=== PATIENT | male | born 1940 | race Caucasian/White ===

== ENCOUNTER 2021-07-26 10:13 | Observation (INO) | payer BC ==
--- OUTSIDE RECORDS SUMMARY | 2021-07-26 10:16 | XMS REPORT | Continuity of Care Document ---
:1940 Author Organization [facility] t Address [address] [place] [address] Care Team Providers Name Role Phone Khurram Garcia Primary Care Physician Maryann Neville Attending Clinician Unavailable Tanisha Persaud Attending Clinician Unavailable Sara Hernandez Attending Clinician Unavailable Mike MONSALVE Attending Clinician Nazia Garcia MD Attending Clinician Pcp-Lab Attending Clinician Unavailable Doctor Unassigned, Name Attending Clinician Unavailable Sara Hernandez Admitting Clinician Unavailable Payers Payer Name Policy Type Policy Number Effective Date Expiration Date S ource Problems Condition Condition Condition Status Onset Resolution Last Treating Co mments Source Name Details Category Date Date Treatment Clinician Date Benign Benign Disease Active 2019-04 Univers prostatic prostatic 0-05 [place]y of hyperplasi [place] Medical unspecifie unspecifie Br anch d whether d whether lower lower urinary urinary tract tract symptoms symptoms present present 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 0-05 ity of 00:00: [place] 00 Medical Branch 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 [place] [facility] [place] 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 00:00: [place] loss loss 00 Medical (SNHL) of (SNHL) of Bran ch both ears both ears Paroxysmal Paroxysmal Disease Active 2020-1 U nivers atrial atrial 0-05 ity of fibrillati fibrill[place] Allergies, Adverse Reactions, Alerts Allergy Allergy Status Severity Reaction(s) Onset Inactive Treating Comm ents Source Name Type Date Date Clinician Sulfa DA Active U 2020-0 [facility] (Sulfona 4-28 [facility] 00:00: d Antibiot 00 Medical ics) Center codeine DA Active SV 2020-0 [facility] 4[facility]28 [facility]: d [facility] Sulfa DA Active U NAUSEA 2020-0 [facility] (Sulfona 4-28 [facility] 00:00: d Antibiot 00 Medical ics) Center codeine DA Active SV CLIMBS THE 2020-0 [facility] WALL 4-28 [facility] 00:[facility]: d 00 [facility] Center Sulfa DA Active U 2020-0 [facility] (Sulfona 4-24 [facility] mide 00:00: White Antibiot 00 Regiona ics) [facility] codeine DA Active SV 2020-0 [facility] 4-24 Clear 00:00: [place] 00 [facility] Sulfa DA Active U NAUSEA 2020-0 [facility] (Sulfona 4-24 Clear mide 00:00: [place] Antibiot 00 Regiona ics) [facility] codeine DA Active SV CLIMBS THE 2020-0 [facility] WALL 4-24 Clear 00:00: [place] 00 [facility] Sulfa DA Active U 2020-0 [facility] (Sulfona 3-03 [place] m[facility] 00:00: d Antibiot 00 Medical ics) Center codeine DA Active SV 2020-0 [facility] 3-03 [facility] 00:[facility]: d 00 [facility] Sulfa DA Active U NAUSEA 2020-0 [facility] (Sulfona 3-03 [place] m[facility] 00:00: d Antibiot 00 Medical ics) Center codeine DA Active SV CLIMBS THE 2020-0 [facility] WALL 3-03 [facility] 00:[facility]: d 00 [facility] Center Sulfa DA Active U 2019- [facility] (Sulfona 2-28 [place] m[facility] 00:00: d Antibiot 00 Medical ics) Center Sulfa DA Active U CLIMBS THE [facility] (Sulfona WALL 2- [facility] mide 00:00: d Antibiot 00 Medical ics) Center Sulfa Propensi Active Nausea Univers (Sulfona ty to and/or 2-05 ity of mide adverse Vomiting 00:00: [place] Antibiot reaction 00 Medica l ics) s Branch Codeine Propensi Active Anxiety Univer s ty to 01-09 ity of adverse 00:00: [place] reaction 00 Medical s Branch Social History Social Habit Start Date Stop Date Quantity Comments Source Exposure to Not sure [facility] SARS-CoV-2 (event) [facility] History of tobacco Smoker Univer sity of use [facility] Alcohol intake 2021-07-06 2021-07-06 Ex-drinker University 00:00:00 00:00:00 (finding) [facility] Tobacco use and 2013-05-20 2013-05-20 Never used Universit y of exposure 00:00:00 00:00:00 [facility] Cigarettes smoked 2013-05-20 2013-05-20 Univers ity of current (pack per 00:00:00 00:00:00 ) - Reported Branch Cigarette 2013-05-20 2013-05-20 University of pack-years 00:00:00 00:00:00 [facility] Sex Assigned At [birth year] Universit y of 00:00:00 00:00:00 [facility] Smoking Status Start Date Stop Date Source Former smoker 2013-05-20 00:00:00 2013-05-20 00:00:00 Universi ty of [facility] Medications Ordered Filled Start Stop Current Ordering Indication Dosage Frequency Signature Comments Components Source Medication Medication Date Date Medication? Clinician (SIG) Name Name clopidogreL Yes 75mg Take 1 Univ ers 75 mg 4-08 tablet by ity of tablet 00:00: mouth [place] 00 daily. Medical Branch atorvastati Yes 80mg Take 1 Univ ers n 80 mg 4-07 tablet by ity of tablet 00:00: mouth at [place] 00 bedtime. Medical Branch atorvastati Yes [id number] 80mg Take 1 Univers n 80 mg 3-31 tablet by ity of tablet 00:00: mouth at [place] 00 bedtime. Medical Branch traMADoL 50 Yes 50mg Take 50 mg Univers mg tablet 3-24 by mouth ity of 13:33: every 6 [place] 43 (six) Medical hours as Branch needed. metoprolol Yes 12.5mg Take 12.5 Univers succinate 3-24 mg by ity of XL 25 mg 24 13:33: mouth [place] hr tablet 37 daily. Medical Branch SAW Yes 667mg Take 667 Univers PALMETTO 3-24 mg by ity of ORAL 13:11: mouth. [place] 36 Medical Branch Coenzyme Yes 200mg Take 200 Univ ers Q10 (CO 3-24 mg by ity of Q-10) 10 mg 13:11: mouth. [facility] 36 Medical Branch apixaban 5 2020-04 Yes 5mg Take 5 mg Un lan mg tablet 1-04 by mouth 2 ity of 00:00: (two) [place] 00 times Medical daily. Branch clopidogreL 2021- No 75mg Take 75 mg Univers 75 mg 9-24 04-08 by mouth. ity of tablet 00:00: 00:00 [place] 00 :00 Medical Branch tamsulosin 2019-04 Yes .4mg Take 1 Unive rs (FLOMAX) 1-02 capsule by ity o f 0.4 mg 24 00:00: mouth [place] hr capsule 00 daily. Medical Branch finasteride 2019-04 Yes [id number] 5mg Take 1 Univers 5 mg tablet 0-05 tablet by ity of 00:00: mouth [place] 00 daily. Medical Branch gabapentin 2019-04 Yes [id number] 300mg Take 1 Univers 300 mg 0-05 capsule by ity of capsule 00:00: mouth 3 [place] 00 (three) Medical times Branch daily. Immunizations Ordered Filled Immunization Date Status Comments [facility] e Immunization Name Name Pneumococcal 2020-01-18 Completed University o f Polysaccharide, 00:00:00 [place] Med ical PPSV23 (PNEUMOVAX) Branch Influenza High Dose 2020-01-18 Completed Unive rsity of Quad 00:00:00 [facility] Influenza Virus 2019-01-07 Completed Universit y of Vaccine 00:00:00 [facility] TDAP 2019-01-07 Completed University 00:00:00 [facility] Procedures This patient has no known procedures. Encounters Start End Encounter Admission Attending Care Care Encounter Source Date/Time Date/Time Type Type Clinicians Facility Department ID 2021-06-30 Out[facility] 2021-06-16 Outpatient J[facility] STFERNANDOLC [facility] [id number] [facility] 15:57:02 [facility] 2021-06-13 Outpatient Jamin STOZZIE [facility] [id number] [facility] 13:23:02 [facility] 2021-03-21 Outpatient ÓSCAR ROCCO [id number] [facility] 09:04:15 -[id number] [facility] 2019-08-11 Inpatient LUCRECIA Persaud [facility] MDAY [id number] [facility] 09:30:00 Tanisha [id number] [facility] 2019-06-16 Inpatient ROSALEE HuntMN [facility] [id number] [facility] 10:30:00 Brock [facility] 2019-06-12 Inpatient ROSALEE HernandezMN [facility] [id number] [facility] 10:30:00 Brock [id number] [facility] 2021-07-21 2021-07-21 Patient Mike, [facility] [id number] [place] [address] 00:00:00 00:00:[address] [facility] [id number] [facility] [id number] Michelle SÁNCHEZIO [phone] [place] [id number] [facility] 2021-07-21 2021-07-21 ambulatory [facility] [id number] [facility] 2021-07-04 2021-07-04 ambulatory [facility] [id number] [facility] 2021-06-20 2021-06-20 amb[facility] [id number] [facility] 2021-06-15 2021-06-15 ambulatory [facility] [id number] [facility] 2021-06-13 2021-06-13 [facility] [id number] [facility] 2019-08-07 2019-08-07 Outpatient ROSALEE PersaudCL LABO [id number] [facility] 09:36:00 09:36:00 Tanisha [id number] [facility] 2019-08-07 2019-08-07 Outpatient Hung [facility] MDAY [id number] [facility] 09:30:00 09:30:00 Tanisha [id number] [facility] 2019-07-30 2019-07-30 Telephone Jose [facility] [id number] 00:00:00 00:00:00 Ankur PRIMARY [id number] Joonik CARE [id number] PAVILLION [id number] 2019-07-24 2019-07-24 Hedis Abstractor Pcp-Lab [facility] [id number] 10:38:18 10:46:40 Visit PRIMARY [id number] CARE [id number] PAVILLION [id number] 2019-07-23 2019-07-23 Refill Doctor [facility] [id number] 00:00:00 00:00:00 Unassigned, PRIMARY [id number] Dora CARE [id number] PAVILLION [id number] 2019-06-30 2019-06-30 Office Garcia, [facility] [id number] 14:06:11 14:26:11 Visit Ankur FAMILY [id number] Joonik MEDICINE [id number] CLINIC - [id number] [address] Results Test Description Test Time Test Comments Results Result [facility] e Comments HERNIA SAC 2019-08-17 09:49:00 RUN DATE: 08/17/19 [facility] - Lab PAGE 1 RUN TIME: 948 Specimen Inquiry RUN USER: INTERFACE JERRI ENT: TIMO SILVA LOC: [facility] U #: [id number] AGE/SX: 79/M ROOM: RE08/11/19REG DR: Tanisha Persaud MD : 41 BED: DIS: STATUS: [facility] TLOC: SPEC #: [id number] RECD: 08/11/19 STATUS: KRISTY COSME #: [id number] RANDA: 08/11/19- SUBM DR: Tanisha Persaud MD ENTERED: 08/11/19 SP TYPE: HERNIA SAC OTHR DR: Brock Hernandez MD ORDERED: LEVEL 2, REQUEST COMMENTS: RIGHT INGUINAL HERNIA SAC COPIES TO: aTnisha Persaud MD [address], [address] [place] [address] Brock Hernandez MD [address] [place] [place] [address] ICD CODES: 550.9 - 553.9 - PROCEDURES: GM LEVEL 2 (08/14/19-1016) REQUEST (08/11/19-1040) CLINICAL HISTORY Right inguinal hernia FINAL DIAGNOSIS RIGHT INGUINAL HERNIA SAC: HERNIA SAC. CPT CODE: 41015 MACROSCOPIC Specimen in formalin labeled "right inguinal hernia sac" consists of an elongatedmembranous piece of tissue forming a sac like structure measuring 2.8 cm long. Seriallysectioned, submitted in toto, one cassette. MICROSCOPIC The sac is composed of thick collagenous fibrous membrane lined by focally reactivemesothelium and showing mild chronic inflammation. No atypia is seen. CONTINUED ON NEXT PAGE RUN DATE: 08/17/19 [place] - Lab PAGE 2 RUN TIME: 948 Specimen Inquiry RUN USER: INTERFACE SPEC #: [id number] PATIENT: THEOTIMO Gustafson #[id number] (Continued) ------- Signed SIGNATURE ON FILE Lisandro Alonzo. 08/17/19 0949 END OF REPORT Novel Coronavirus 20182019-08-08 20:51:00 Test Item Value Reference Range Interpretation Comme nts Novel Coronavirus 2018 Negative Negative Posit kevin results are indicative of the Inhouse (test code = presenc e [id number]-7 RNA, clinical [id number]) correlation wit h patient historyand other diagnosti c information is necessary to de terminepatient infection status. Positiv e results do not rule outbacterial in fection or co-infection with other viru ses. Negative results do not preclude SA RS-CoV-2 infection andshould not b e used as the sole basis for patient man agementdecisions. Negative result s must be combined with otherclinical o bservations, patient history, and ep idemiologicalinformation. Detection of SA RS-CoV-2 RNA may be affected bysamp le collection methods, storage conditi ons, and/or stageof infection. Marisol l RNA mutations, vaccinations, a ntiviraltherapeutics, antibiotics, ch emotherapeutic orimmunosuppres aubrie drugs have not been evaluated for e ffectson detection. Results are for the identification of SARS-CoV-2 RNA usingthe [employer]000 System under th e FDA Emergency UseAuthorizatio n. The testing is performed by chris crook in the procedures for the [employer] M2000 moleculardiagno stic SARS-CoV-2 assay in vitro. Testing Criteria: Preprocedure ScreeningSpecimen comments: SURGERY 08/11/19 SCHEDULEDNovel Coronavirus [id number] 01:09:00 Test Item Value Reference Range Interpretation Comments Novel Coronavirus Negative Negative Positive r esults are 2019 Inhouse (test indicativ e of the presence code = [id number]) ofSARS-CoV -2 RNA, clinical correlation wit h patient historyand othe r diagnostic info rmation is necessary to determinepatien t infection status. Positiv e results do not rule out bacterial infection or co -infection with other viru ses. Negative result s do not preclude SARS-C oV-2 infection andsh ould not be used as the saul e basis for patient managementdecis ions. Negative result s must be combined with otherclinical observations, p atient history, and epidemiological information . Detection of SARS-CoV-2 RNA may be affe cted bysample collec tion methods, storag e conditions, and /or stageof infection. Marisol l RNA mutations, vacc inations, antiviraltherap eutics, antibiotics, chemotherapeuti c orimmunosuppres aubrie drugs have not been e valuated for effectson d etection. Results are for the identification of SARS-CoV-2 RNA usingthe [employer] M2000 Sy stem under the FDA Emergen cy UseAuthorizatio n. The testing is perf ormed by moses negron in the procedures for the [employer] M2000 molecular diagnostic SARS-CoV-2 assa y in vitro. Testing Criteria: Preprocedure ScreeningSpecimen comments: SURGERY 08/11/19 SCHEDULEDBASIC METABOLIC [id number] 09:47:00 Test Item Value Reference Range Interpretation Comments SODIUM (test code = NA) 137 mmol/l 134.0-147.0 N POTASSIUM (test code = K) 4.3 mmol/L 3.6-5.2 N CHLORIDE (test code = CL) 104 mmol/l 98.0-107.0 N CARBON DIOXIDE (test code = CO2) 29.8 mmol/l 21.0-33.0 N ANION GAP (test code = GAP) 7.5 0-20 N GLUCOSE (test code = GLU) 88 mg/dl 70.0-110.0 N BLOOD UREA NITROGEN (test code = 24 mg/dl 7.0-18.0 H BUN) CREATININE (test code = CREAT) 0.96 mg/dL 0.60-1.30 N GFR NON BLACK (test code = 80 mL/min 70-80 N GFRNONBLACK) GFR BLACK (test code = GFRBLACK) 97 mL/min 85-97 N CALCIUM (test code = CA) 9.0 mg/dl 8.0-10.5 N CBC W/AUTO [id number] 09:40:00 Test Item Value Reference Range Interpretation Comments WHITE BLOOD CELL (test code = 8.0 K/mm3 4.5-11.0 N WBC) RED BLOOD CELL (test code = 4.63 M/mm3 4.40-5.90 N RBC) HEMOGLOBIN (test code = HGB) 14.5 gm/dL 13.0-17.0 N HEMATOCRIT (test code = HCT) 44.1 % 36.0-48.0 N MEAN CELL VOLUME (test code = 95.2 UM3 80.0-94.0 H MCV) MEAN CELL HGB (test code = MCH) 31.3 UUG 25.5-32.5 N MEAN CELL HGB CONCETRATION 32.9 gm/dL 29.0-35.5 N (test code = MCHC) RED CELL DISTRIBUTION WIDTH 13.0 % 11.5-15.0 N (test code = RDW) RED CELL DISTRIBUTION WIDTH SD 45.3 fL 34.8-50.2 N (test code = RDW-SD) PLATELET COUNT (test code = 263 K/mm3 150-400 N PLT) MEAN PLATELET VOLUME (test code 9.8 fl 7.4-10.4 N = MPV) NEUTROPHIL % (test code = NT%) 58.9 % 49.0-76.0 N IMMATURE GRANULOCYTE % (test 0.3 % 0.0-0.4 N code = IG%) LYMPHOCYTE % (test code = LY%) 19.9 % 23.0-38.0 L MONOCYTE % (test code = MO%) 10.5 % 1.0-10.0 H EOSINOPHIL % (test code = EO%) 9.5 % 1.0-5.0 H BASOPHIL % (test code = BA%) 0.9 % 0.0-1.0 N NEUTROPHIL # (test code = NT#) 4.7 K/mm3 2.4-6.3 N IMMATURE GRANULOCYTE # (test 0.02 x10 3/uL 0.00-0.07 N code = IG#) LYMPHOCYTE # (test code = LY#) 1.6 K/mm3 1.2-4.0 N MONOCYTE # (test code = MO#) 0.8 K/mm3 0.0-0.6 H EOSINOPHIL # (test code = EO#) 0.8 K/MM3 0.0-0.7 H BASOPHIL # (test code = BA#) 0.1 K/mm3 0.0-0.2 N [id number] 11:31:00 RUN DATE: 06/18/19 [facility] - Lab PAGE 1 RUN TIME: 1131 Specimen Inquiry RUN USER: INTERFACE PATIENT: TIMO SILVA LOC: JEM U #: [id number] AGE/SX: 79/M ROOM: [facility] RE06/16/19REG DR: Brock Hernandez MD : 41 BED: 1 DIS: STATUS: ADM Elisa TLOC: SPEC #: [id number] RECD: 06/16/19 STATUS: KRISTY COSME #: [id number] RANDA: 06/16/19- SUBM DR: Brock Hernandez MD ENTERED: 06/16/19 SP TYPE: BONE OTHR DR: ORDERED: REQUEST ICD CODES: 715.9 - PROCEDURES: REQUEST (06/16/19) TISSUES: KNEE, NOS - RIGHT KNEE BONE FINAL DIAGNOSIS RIGHT KNEE BONE, SHAVINGS: BONE AND ARTICULAR CARTILAGE WITH SURFACE EROSION AND MICROCYST FORMATION. CONSISTENT WITH DEGENERATIVE JOINT DISEASE. CPT CODE: 13795, 33540 MACROSCOPIC Received in formalin labeled "right knee bone" consists of a 8 x 7 x 5.1 cm aggregate ofknee bone slices ranging from minute to 8.0 cm in greatest dimension. The cartilaginoussurface is slightly irregular. The cortex is keith. Sap Bpc Architect section is submittedinto a single cassette following decalcification. MICROSCOPIC SEE DIAGNOSIS Signed SIGNATURE ON FILE Marlys Alonzo 06/18/19 1131 ----- ------- END OF REPORT COMPREHENSIVE METABOLIC [id number] 05:50:00 Test Item Value Reference Range Interpretation Comments SODIUM (test code = NA) 142 mmol/l 134.0-147.0 N POTASSIUM (test code = K) 4.2 mmol/L 3.6-5.2 N CHLORIDE (test code = CL) 107 mmol/l 98.0-107.0 N CARBON DIOXIDE (test code = CO2) 27.2 mmol/l 21.0-33.0 N ANION GAP (test code = GAP) 12.0 0-20 N GLUCOSE (test code = GLU) 101 mg/dl 70.0-110.0 N BLOOD UREA NITROGEN (test code = 18 mg/dl 7.0-18.0 N BUN) CREATININE (test code = CREAT) 0.99 mg/dL 0.60-1.30 N GFR NON BLACK (test code = 77 mL/min 70-80 N GFRNONBLACK) GFR BLACK (test code = GFRBLACK) 94 mL/min 85-97 N TOTAL PROTEIN (test code = PROT) 6.0 gm/dL 6.4-8.2 L ALBUMIN (test code = ALB) 2.9 gm/dl 3.2-4.7 L CALCIUM (test code = CA) 8.5 mg/dl 8.0-10.5 N BILIRUBIN TOTAL (test code = 0.3 mg/dl 0.0-1.0 N BILT) SGOT/AST (test code = AST) 25 Units/L 15.0-37.0 N SGPT/ALT (test code = ALT) 17 Units/L 12.0-78.0 N ALKALINE PHOSPHATASE TOTAL (test 71 Units/L 50.0-136.0 N code = ALKP) CBC W/AUTO [id number] 05:19:00 Test Item Value Reference Range Interpretation Comments WHITE BLOOD CELL (test code = 10.0 K/mm3 4.5-11.0 N WBC) RED BLOOD CELL (test code = 3.59 M/mm3 4.40-5.90 L RBC) HEMOGLOBIN (test code = HGB) 11.2 gm/dL 13.0-17.0 L HEMATOCRIT (test code = HCT) 33.9 % 36.0-48.0 L MEAN CELL VOLUME (test code = 94.4 UM3 80.0-94.0 H MCV) MEAN CELL HGB (test code = MCH) 31.2 UUG 25.5-32.5 N MEAN CELL HGB CONCETRATION 33.0 gm/dL 29.0-35.5 N (test code = MCHC) RED CELL DISTRIBUTION WIDTH 12.7 % 11.5-15.0 N (test code = RDW) RED CELL DISTRIBUTION WIDTH SD 44.3 fL 34.8-50.2 N (test code = RDW-SD) PLATELET COUNT (test code = 203 K/mm3 150-400 N PLT) MEAN PLATELET VOLUME (test code 10.4 fl 7.4-10.4 N = MPV) NEUTROPHIL % (test code = NT%) 58.7 % 49.0-76.0 N IMMATURE GRANULOCYTE % (test 0.3 % 0.0-0.4 N code = IG%) LYMPHOCYTE % (test code = LY%) 18.1 % 23.0-38.0 L MONOCYTE % (test code = MO%) 13.2 % 1.0-10.0 H EOSINOPHIL % (test code = EO%) 9.1 % 1.0-5.0 H BASOPHIL % (test code = BA%) 0.6 % 0.0-1.0 N NEUTROPHIL # (test code = NT#) 5.9 K/mm3 2.4-6.3 N IMMATURE GRANULOCYTE # (test 0.03 x10 3/uL 0.00-0.07 N code = IG#) LYMPHOCYTE # (test code = LY#) 1.8 K/mm3 1.2-4.0 N MONOCYTE # (test code = MO#) 1.3 K/mm3 0.0-0.6 H EOSINOPHIL # (test code = EO#) 0.9 K/MM3 0.0-0.7 H BASOPHIL # (test code = BA#) 0.1 K/mm3 0.0-0.2 N BASIC METABOLIC [id number] 07:01:00 Test Item Value Reference Range Interpretation Comments SODIUM (test code = NA) 144 mmol/l 134.0-147.0 N POTASSIUM (test code = K) 4.2 mmol/L 3.6-5.2 N CHLORIDE (test code = CL) 107 mmol/l 98.0-107.0 N CARBON DIOXIDE (test code = CO2) 30.2 mmol/l 21.0-33.0 N ANION GAP (test code = GAP) 11.0 0-20 N GLUCOSE (test code = GLU) 87 mg/dl 70.0-110.0 N BLOOD UREA NITROGEN (test code = 17 mg/dl 7.0-18.0 N BUN) CREATININE (test code = CREAT) 0.97 mg/dL 0.60-1.30 N GFR NON BLACK (test code = 79 mL/min 70-80 N GFRNONBLACK) GFR BLACK (test code = GFRBLACK) 96 mL/min 85-97 N CALCIUM (test code = CA) 8.6 mg/dl 8.0-10.5 N CBC W/AUTO [id number] 06:24:00 Test Item Value Reference Range Interpretation Comments WHITE BLOOD CELL (test code = 10.2 K/mm3 4.5-11.0 N WBC) RED BLOOD CELL (test code = 3.60 M/mm3 4.40-5.90 L RBC) HEMOGLOBIN (test code = HGB) 11.4 gm/dL 13.0-17.0 L HEMATOCRIT (test code = HCT) 34.8 % 36.0-48.0 L MEAN CELL VOLUME (test code = 96.7 UM3 80.0-94.0 H MCV) MEAN CELL HGB (test code = MCH) 31.7 UUG 25.5-32.5 N MEAN CELL HGB CONCETRATION 32.8 gm/dL 29.0-35.5 N (test code = MCHC) RED CELL DISTRIBUTION WIDTH 12.9 % 11.5-15.0 N (test code = RDW) RED CELL DISTRIBUTION WIDTH SD 46.0 fL 34.8-50.2 N (test code = RDW-SD) PLATELET COUNT (test code = 205 K/mm3 150-400 N PLT) MEAN PLATELET VOLUME (test code 10.7 fl 7.4-10.4 H = MPV) NEUTROPHIL % (test code = NT%) 67.3 % 49.0-76.0 N IMMATURE GRANULOCYTE % (test 0.5 % 0.0-0.4 H code = IG%) LYMPHOCYTE % (test code = LY%) 16.0 % 23.0-38.0 L MONOCYTE % (test code = MO%) 11.6 % 1.0-10.0 H EOSINOPHIL % (test code = EO%) 4.1 % 1.0-5.0 N BASOPHIL % (test code = BA%) 0.5 % 0.0-1.0 N NEUTROPHIL # (test code = NT#) 6.9 K/mm3 2.4-6.3 H IMMATURE GRANULOCYTE # (test 0.05 x10 3/uL 0.00-0.07 N code = IG#) LYMPHOCYTE # (test code = LY#) 1.6 K/mm3 1.2-4.0 N MONOCYTE # (test code = MO#) 1.2 K/mm3 0.0-0.6 H EOSINOPHIL # (test code = EO#) 0.4 K/MM3 0.0-0.7 N BASOPHIL # (test code = BA#) 0.1 K/mm3 0.0-0.2 N - XR KNEE 1 OR 2 V [id number] 09:11:00 FAX: Brock Mclean MD [phone] [place]: St: ADM Name: TIMO SILVA [facility] : 1940 Age/S: 79/M [address] [facility] Unit#: [id number] Loc: [address] Phys: [place] [address] Acct: [id number] Dis Date: Status: ADM IN PHONE #: [phone] Exam Date: 06/16/2019 0900 FAX #: [phone] Reason: tka EXAMS: CPT CODE: [id number] XR KNEE 1 OR 2 [place] [id number] EXAMINATION: - XR KNEE 1 OR 2 V RT. LOCATION: B2. HISTORY: tka. COMPARISON: None. TECHNIQUE: AP and lateral views of the right knee were obtained. FINDINGS: Right knee arthroplasty is seen without evidence of hardware failure or loosening. No acute fracture or dislocation is identified. Small joint effusion is seen containing air. Surgical rajiv are seen at midline along with a surgical drain. IMPRESSION: Postsurgical changes of right knee arthroplasty without evidence of hardware failure or loosening. at 0911 Reported and signed by: Kaylah Benitez M.D. CC: Brock Hernandez MD Technologist: ASHANTI MILTON [facility] Date/Time/By: 06/16/2019 (0911) : By: [email or web address] PAGE 1 Signed Report FAX: Y Brock Hernandez MD [phone] [place]: St: ADM Name: TIMO SILVA [facility] : 1940 Age/S: 79/M [address] [facility] Unit #: [id number] Loc: [address] Phys: [place] [id number] Acct: [id number] Dis Date: Status: ADM IN PHONE #: [phone] Exam Date: 06/16/2019 09 FAX #: [phone] Reason: tka EXAMS: CPT CODE: [id number] XR KNEE 1 OR 2 V RT [id number] <Continued> Orig Print D/T: S: 06/16/2019 (14) PAGE 2 Signed ReportPROTHROMBIN [id number] 06:00:00 Test Item Value Reference Range Interpretation Comments PROTHROMBIN TIME 12.1 SECONDS 9.9-12.8 PATIENT (test code = PTP) INTERN[place] NORMAL 1.0 0.89-1.14 N THE INR IS TO BE USED RATIO (test code = ONLY FOR MONITORING INR) ORAL ANTICOAGULANTTH ERAPY. THE FOLLOWING A RE SUGGESTED RANGE S FROM [facility]:JERRY CATION INR VALUEPROPHYLAXI S OF VENOUS THROMBOS IS (ORTHOPEDIC MARK PHYLLIS) 2.0 - 3.0PROP HYLAXIS OF VENOUS THROM BOSIS (OTHER THAN HIG H-RISK SURGERY) 2.0 - 3.0TRE ATMENT OF DEEP VEIN THROMBOSIS OR PULMONARY EMBOL ISM 2.0 - 3.0PREV ENTION OF SYSTEMIC EMB OLISM TISSUE HEART VA LVES 2.0 - 3.0 AC BETO MYOCARDIAL INFA RCTION (TO PREVENT SYSTEMIC EMBOLI SM) 2.0 - 3.0 ACUTE MYOCARDIA L INFARCTION (TO PREVENT RECURRE NT INFARCT) 2.5 - 3.0 VALV ULAR HEART DISEASE 2.0 - 3.0 ATRIAL FIBRILATION 2.0 - 3.0BILEAFLET MECHANICAL VALV E IN AORTIC POSITION 2.0 - 3.0MECHAN ICAL PROSTHETIC VALV ES (HIGH RISK) 2.5 - 3.5PRESEN CE OF LUPUS ANTICOAGU LANT OR ANTIPHOSPHOLIP ID ANTIBODIES 2.5 - 3 .5 Is patient on anticoagulants? YIf yes, list anticoagulants: ASPIRINComments to Non Destructive Testing Technician: ROOM 107If yes, please list anticoagulants:Is patient on heparin protocol? NTHROMBOPLASTIN TIME [id number] 06:00:00 Test Item Value Reference Range Interpretation Comments THROMBOPLASTIN TIME 38.10 SECONDS 25.86-36.07 [facility] PARTIAL (test code = Therape uti Range - PTT) APTT of 55.8-85 .4 secondscorrelat es with plasma heparin concentration o f 0.2-0.4 u/mL Ne w range effective - Is patient on anticoagulants? YIf yes, list anticoagulants: ASPIRINComments to Non Destructive Testing Technician: ROOM 107If yes, please list anticoagulants:Is patient on heparin protocol? NPROTHROMBIN [id number] 14:20:00 Test Item Value Reference Range Interpretation Comments PROTHROMBIN TIME 21.1 SECONDS 9.9-12.8 H PATIENT (test code = PTP) INTERNATIONAL NORMAL 1.7 0.89-1.14 H THE INR IS TO BE USED RATIO (test code = ONLY FOR MONITORING INR) ORAL ANTICOAGULANTTH ERAPY. THE FOLLOWING A RE SUGGESTED RANGE S FROM THEAMERICAN COL LEGE OF CHEST PHYSICIANS:JERRY CATION INR VALUEPROPHYLAXI S OF VENOUS THROMBOS IS (ORTHOPEDIC MARK PHYLLIS) 2.0 - 3.0PROP HYLAXIS OF VENOUS THROM BOSIS (OTHER THAN HIG H-RISK SURGERY) 2.0 - 3.0TRE ATMENT OF DEEP VEIN THROMBOSIS OR PULMONARY EMBOL ISM 2.0 - 3.0PREV ENTION OF SYSTEMIC EMB OLISM TISSUE HEART VA LVES 2.0 - 3.0 AC BETO MYOCARDIAL INFA RCTION (TO PREVENT SYSTEMIC EMBOLI SM) 2.0 - 3.0 ACUTE MYOCARDIA L INFARCTION (TO PREVENT RECURRE NT INFARCT) 2.5 - 3.0 VALV ULAR HEART DISEASE 2.0 - 3.0 ATRIAL FIBRILATION 2.0 - 3.0BILEAFLET MECHANICAL VALV E IN AORTIC POSITION 2.0 - 3.0MECHAN ICAL PROSTHETIC VALV ES (HIGH RISK) 2.5 - 3.5PRESEN CE OF LUPUS ANTICOAGU LANT OR ANTIPHOSPHOLIP ID ANTIBODIES 2.5 - 3 .5 Is patient on anticoagulants? YIf yes, list anticoagulants: XARELTO COMPREHENSIVE METABOLIC [id number] 13:42:00 Test Item Value Reference Range Interpretation Comments SODIUM (test code = NA) 138 mmol/l 134.0-147.0 N POTASSIUM (test code = K) 4.6 mmol/L 3.6-5.2 N CHLORIDE (test code = CL) 105 mmol/l 98.0-107.0 N CARBON DIOXIDE (test code = CO2) 25.4 mmol/l 21.0-33.0 N ANION GAP (test code = GAP) 12.2 0-20 N GLUCOSE (test code = GLU) 94 mg/dl 70.0-110.0 N BLOOD UREA NITROGEN (test code = 26 mg/dl 7.0-18.0 H BUN) CREATININE (test code = CREAT) 0.89 mg/dL 0.60-1.30 N GFR NON BLACK (test code = 88 mL/min 70-80 H GFRNONBLACK) GFR BLACK (test code = GFRBLACK) 106 mL/min 85-97 H TOTAL PROTEIN (test code = PROT) 7.0 GM/DL 6.0-8.1 N ALBUMIN (test code = ALB) 3.6 gm/dL 3.2-4.7 N CALCIUM (test code = CA) 9.2 mg/dl 8.0-10.5 N BILIRUBIN TOTAL (test code = 0.6 mg/dl 0.0-1.0 N BILT) SGOT/AST (test code = AST) 20 Units/L 15.0-37.0 N SGPT/ALT (test code = ALT) 22 Units/L 12.0-78.0 N ALKALINE PHOSPHATASE TOTAL (test 79 Units/L 50.0-136.0 N code = ALKP) CBC W/AUTO [id number] 13:28:00 Test Item Value Reference Range Interpretation Comments WHITE BLOOD CELL (test code = 7.3 K/mm3 4.5-11.0 N WBC) RED BLOOD CELL (test code = 4.25 M/mm3 4.40-5.90 L RBC) HEMOGLOBIN (test code = HGB) 13.2 gm/dL 13.0-17.0 N HEMATOCRIT (test code = HCT) 41.5 % 36.0-48.0 N MEAN CELL VOLUME (test code = 97.6 UM3 80.0-94.0 H MCV) MEAN CELL HGB (test code = MCH) 31.1 UUG 25.5-32.5 N MEAN CELL HGB CONCETRATION 31.8 gm/dL 29.0-35.5 N (test code = MCHC) RED CELL DISTRIBUTION WIDTH 12.8 % 11.5-15.0 N (test code = RDW) RED CELL DISTRIBUTION WIDTH SD 45.9 fL 34.8-50.2 N (test code = RDW-SD) PLATELET COUNT (test code = 225 K/mm3 150-400 N PLT) MEAN PLATELET VOLUME (test code 10.2 fl 7.4-10.4 N = MPV) NEUTROPHIL % (test code = NT%) 53.9 % 49.0-76.0 N IMMATURE GRANULOCYTE % (test 0.3 % 0.0-0.4 N code = IG%) LYMPHOCYTE % (test code = LY%) 25.5 % 23.0-38.0 N MONOCYTE % (test code = MO%) 10.9 % 1.0-10.0 H EOSINOPHIL % (test code = EO%) 8.8 % 1.0-5.0 H BASOPHIL % (test code = BA%) 0.6 % 0.0-1.0 N NEUTROPHIL # (test code = NT#) 3.9 K/mm3 2.4-6.3 N IMMATURE GRANULOCYTE # (test 0.02 x10 3/uL 0.00-0.07 N code = IG#) LYMPHOCYTE # (test code = LY#) 1.9 K/mm3 1.2-4.0 N MONOCYTE # (test code = MO#) 0.8 K/mm3 0.0-0.6 H EOSINOPHIL # (test code = EO#) 0.6 K/MM3 0.0-0.7 N BASOPHIL # (test code = BA#) 0.0 K/mm3 0.0-0.2 N - XR CHEST 2 [id number] 13:17:00 FAX: Brock Mclean MD [phone] [place]: St: PRE Name: TIMO SILVA [facility] : 1940 Age/S: 79/M [address] [facility] Unit#: [id number] Loc: [address] Phys: [place] [id number] Acct: [id number] Dis Date: Status: PRE IN PHONE #: [phone] Exam Date: 06/12/2019 1215 FAX #: [phone] Reason: PREOP EXAMS: CPT CODE: [id number] XR CHEST 2 V 95332 EXAM: - XR CHEST 2 V LOCATION: [id number]: PREOP COMPARISON: None available time of interpretation. FINDINGS: 2 views of the chest. No indwelling lines or tubes. No pneumothorax. The lungs are clear without significant effusions. The mediastinal contours are unremarkable/unchanged. The mediastinal contours are unremarkable. No acute osseous findings are present. IMPRESSION: No acute cardiopulmonary abnormality. at 1317 Reported and signed by: Milad Young M.D. CC: Brock Hernandez MD Technologist: RUBY BURKS PAGE 1 Signed Report FAX: Brock Mclean MD [phone] [place]: St: PRE Name: TIMO SILVA [facility] : 1940 Age/S: 79/M [address] Unit #: [id number] Loc: [address] Phys: [place] [id number] Acct: [id number] Dis Date: Status: PRE IN PHONE #: [phone] Exam Date: 06/12/2019 1215 FAX #: [phone] Reason: PREOP EXAMS: CPT CODE: [id number] XR CHEST 2 V 70813 <Continued> Trnscrd Date/Time/By: 06/12/2019 (1317) : By: [email or web address] PAGE 2 Signed ReportURINALYSIS [id number] 13:13:00 Test Item Value Reference Range Interpretation Comments UA COLOR (test code = LT YELLOW COLU) UA APPEARANCE (test code CLEAR = APPU) UA GLUCOSE DIPSTICK (test NORMAL mg/dl NORMAL code = DGLUU) UA BILIRUBIN DIPSTICK NEGATIVE mg/dL NEGATIVE (test code = BILU) UA KETONE DIPSTICK (test NEGATIVE mg/dl NEGATIVE code = KETU) UA SPECIFIC GRAVITY (test 1.015 1.000-1.030 code = SGU) UA BLOOD DIPSTICK (test 10 Rich/micL Rich/micL NEGATIVE A code = TEJA) UA PH DIPSTICK (test code 6.0 5.0-9.0 = XIN) UA PROTEIN DIPSTICK (test NEGATIVE mg/dl NEGATIVE code = PROU) UA UROBILINIOGEN DIPSTICK NORMAL mg/dl NORMAL (test code = URO) UA NITRITE DIPSTICK (test NEGATIVE NEGATIVE code = BARBARA) UA LEUKOCYTE ESTERASE 100 Francisco/micL NEGATIVE A DIPSTICK (test code = Francisco/micL LEUU) UA WBC (test code = WBCU) 4-9 WBC/HPF NONE A UA RBC (test code = RBCU) 3-5 RBC/HPF 0-3 UA EPITHELIAL CELLS (test 10-15 EPI/HPF 0-3 A code = EPIU) UA BACTERIA (test code = TRACE NONE BACU) URINALYSIS [id number] 12:47:00 Test Item Value Reference Range Interpretation Comments UA COLOR (test code = LT YELLOW COLU) UA APPEARANCE (test code CLEAR = APPU) UA GLUCOSE DIPSTICK (test NORMAL mg/dl NORMAL code = DGLUU) UA BILIRUBIN DIPSTICK NEGATIVE mg/dL NEGATIVE (test code = BILU) UA KETONE DIPSTICK (test NEGATIVE mg/dl NEGATIVE code = KETU) UA SPECIFIC GRAVITY (test 1.015 1.000-1.030 code = SGU) UA BLOOD DIPSTICK (test 10 Rich/micL Rich/micL NEGATIVE A code = TEJA) UA PH DIPSTICK (test code 6.0 5.0-9.0 = XIN) UA PROTEIN DIPSTICK (test NEGATIVE mg/dl NEGATIVE code = PROU) UA UROBILINIOGEN DIPSTICK NORMAL mg/dl NORMAL (test code = URO) UA NITRITE DIPSTICK (test NEGATIVE NEGATIVE code = BARBARA) UA LEUKOCYTE ESTERASE 100 Francisco/micL NEGATIVE A DIPSTICK (test code = Francisco/micL LEUU) UA WBC (test code = WBCU) WBC/HPF NONE UA RBC (test code = RBCU) RBC/HPF 0-3 UA EPITHELIAL CELLS (test EPI/HPF 0-3 code = EPIU) UA BACTERIA (test code = NONE BACU)
[2021-07-26 10:56] LABS: Absolute Lymphocytes (CBC) 1.7 K/uL (0.7-4.9); Hematocrit 29.6 % (39.6-49.0); Lymphocytes % 24.2 % (15.3-44.8); MPV 7.8 fL (7.6-11.3); RBC Red Blood Cell Count 3.33 M/uL (4.33-5.43)
--- NOTE | 2021-07-26 11:21 | ER ---
Nurse's Notes [facility] Name: Timo Silva Age: 81 yrs Sex: Male : 1940 Arrival Date: 07/26/2021 Time: 10:16 Bed Treatment Private MD: Diagnosis: Orthostatic hypotension;Unspecified atrial fibrillation Presentation: 07/26 10:29 Chief complaint: Patient states: Dizzy, near syncope feeling for 3 days. BP up and down ll1 while feeling bad. 10:30 Coronavirus screen: Vaccine status: Patient reports being unvaccinated. Client denies ll1 travel out of the [place] in the last 14 days. At this time, the client does not indicate any symptoms associated with coronavirus-19. Ebola Screen: Patient denies travel to an Ebola-affected area in the 21 days before illness onset. No acute neurological deficit is noted. Initial Sepsis Screen: Does the patient meet any 2 criteria? No. Patient's initial sepsis screen is negative. Does the patient have a suspected source of infection? No. Patient's initial sepsis screen is negative. Risk Assessment: Do you want to hurt yourself or someone else? Patient reports no desire to harm self or others. Onset of symptoms was July 24, 2021. 10:30 Method Of Arrival: Wheelchair ll1 10:30 Acuity: NADIRA 3 ll1 Triage Assessment: 10:32 The onset of the patients symptoms was more than six hours ago. General: Appears ill, ll1 Behavior is cooperative, appropriate for age. Pain: Denies pain. Neuro: Reports dizziness, weakness. Stroke Activation: Symptom onset > 6 hours Physician: Stroke Attending; Name: ; Notified At: ; Arrived At: Physician: Chief Stroke Resident; Name: ; Notified At: ; Arrived At: Physician: Stroke Resident; Name: ; Notified At: ; Arrived At: Physician: ED Attending; Name: ; Notified At: ; Arrived At: Physician: ED Resident; Name: ; Notified At: ; Arrived At: Historical: - Allergies: 10:29 Codeine; ll1 10:29 Sulfa (Sulfonamide Antibiotics); ll1 - PMHx: 10:29 Coronary atherosclerosis; Myocardial infarction; ll1 - Immunization history:: Client reports having NOT received the Covid vaccine. - Social history:: Smoking status: Patient denies any tobacco usage or history of. Screenin:50 Abuse screen: Denies threats or abuse. Denies injuries from another. Nutritional ab2 screening: No deficits noted. Tuberculosis screening: No symptoms or risk factors identified. Fall Risk None identified. Assessment: 10:48 VAN Scoring: Arm Drift: Patients demonstrates NO arm weakness. Patient is VAN Negative. ab2 The patient has not been NPO before screening. The patient is alert, and able to follow commands. The patient does not exhibit slurred or garbled speech. The patient is not exhibiting difficulty speaking. The patient does not exhibit difficulty understanding words. The patient is able to swallow own secretions with no drooling or need for suction. Patient tolerated one teaspoon of water. No drooling, immediate coughing, gurgling, or clearing of the throat was noted. The patient tolerated 90mL of water. No drooling, immediate coughing, gurgling, or clearing of the throat was noted. The patient passed the bedside swallow screening. Oral medications may be given as ordered. Contact Physician for further diet orders. Provider notified of bedside swallow screening results: Alejo Parra DO. General: Appears in no apparent distress. comfortable, Behavior is calm, cooperative, appropriate for age. Pain: Denies pain. Neuro: No deficits noted. Level of Consciousness is awake, alert, obeys commands, Oriented to person, place, time, situation, Appropriate for age Compensation Intern are equal bilaterally Moves all extremities. Gait is steady, Speech is normal, Facial symmetry appears normal. Cardiovascular: No deficits noted. Denies chest pain, shortness of breath, Heart tones S1 S2 present. Respiratory: Airway is patent Respiratory effort is even, unlabored, Respiratory pattern is regular, symmetrical, Breath sounds are clear bilaterally. GI: No deficits noted. No signs and/or symptoms were reported involving the gastrointestinal system. Abdomen is round non-distended, Bowel sounds present X 4 quads. : No deficits noted. No signs and/or symptoms were reported regarding the genitourinary system. Derm: No deficits noted. No signs and/or symptoms reported regarding the dermatologic system. Skin is intact, Skin is pink, warm \T\ dry. Musculoskeletal: No deficits noted. No signs and/or symptoms reported regarding the musculoskeletal system. 15:42 Reassessment: Patient appears in no apparent distress at this time. Pt resting in bed, ab2 patient ate lunch tray. Denies any further needs at this time. 17:04 Reassessment: Patient appears in no apparent distress at this time. Pt resting ab2 comfortably in bed. Warm blankets provided. Denies any further needs at this time. 20:22 Reassessment: Patient appears in no apparent distress at this time. Pt ambulated to ab2 bathroom with no assistance. Pt given ice water, per request. Pt denies any further needs. Vital Signs: 10:30 BP 112 / 58; Pulse 54; Resp 17; Temp 97.7; Pulse Ox 100% ; Pain 0/10; ll1 11:20 BP 104 / 52 Supine; Pulse 80; Resp 17; Pulse Ox 98% on R/A; ab2 11:22 BP 111 / 56; Pulse 68; Resp 17; Pulse Ox 99% on R/A; ab2 11:24 BP 92 / 48; Pulse 95; Resp 17; Pulse Ox 100% on R/A; ab2 12:54 BP 110 / 54 Supine; Pulse 80; Resp 16; Pulse Ox 100% on R/A; mh5 12:56 BP 102 / 65 Sitting; Pulse 38; Resp 16; Pulse Ox 100% on R/A; mh5 12:59 BP 88 / 53 Standing; Pulse 88; Resp 16; Pulse Ox 100% on R/A; mh5 14:00 BP 104 / 77; Pulse 90; Resp 17; Pulse Ox 100% on R/A; ab2 15:40 BP 108 / 81; Pulse 95; Resp 18; Pulse Ox 99% on R/A; ab2 16:33 BP 101 / 48; Pulse 111; Resp 17; Pulse Ox 97% on R/A; ab2 17:04 BP 98 / 67; Pulse 120; Resp 17; Pulse Ox 100% on R/A; ab2 18:08 BP 104 / 79; Pulse 108; Resp 17; Pulse Ox 99% on R/A; ab2 20:21 BP 101 / 53; Pulse 91; Resp 17; Pulse Ox 100% on R/A; ab2 NIH Stroke Scale Scores: 10:48 NIHSS Score: 0 ab2 ED Course: 10:16 Patient arrived in ED. rg4 10:30 Arm band placed on. ll1 10:32 Triage completed. ll1 10:36 Alejo Parra DO is Attending Physician. ms3 10:48 Bleininger, Rogelio is Primary Nurse. ab2 10:51 Patient has correct armband on for positive identification. Bed in low position. Call ab2 light in reach. Side rails up X2. 10:51 No provider procedures requiring assistance completed. Inserted saline lock: 20 gauge ab2 in left antecubital area, using aseptic technique. Blood collected. 11:20 Liam De La Rosa MD is Referral Physician. ms3 13:17 Atif Casper MD is Hospitalizing Provider. ms3 14:38 SARS-COV-2 RT PCR Sent. zm 21:10 Patient admitted, IV remains in place. ab2 Administered Medications: 11:30 Drug: NS 0.9% 1000 ml Route: IV; Rate: 1 bolus; Site: left antecubital; ab2 15:42 Follow up: Response: No adverse reaction; IV Status: Completed infusion ab2 Outcome: 11:21 Discharge ordered by . ms3 13:18 Decision to Hospitalize by Provider. ms3 21:10 Admitted to Med/surg accompanied by nurse, via wheelchair, room 222, with chart, Report ab2 called to SUKHJINDER Aguila 21:10 Condition: good 21:11 Patient left the ED. ab2 NIH Stroke Scale - NIH Stroke Score Date: 07/26/2021 Time: 10:48 Total Score = 0 1a. Level of Consciousness (LOC) - 0(Alert) 1b. Level of Consciousness (LOC) (Month \T\ Age) - 0(Both) 1c. LOC Commands (Open \T\ Closes Eyes/[employer]er) - 0(Both) 2. Best Gaze (Lateral Gaze Paresis) - 0(Normal) 3. Visual Field Loss - 0(No visual loss) 4. Facial Palsy - 0(Normal) 5a. Left Arm: Motor (10-second hold) - 0(No drift) 5b. Right Arm: Motor (10-second hold) - 0(No drift) 6a. Left Leg: Motor (5-second hold - always test supine) - 0(No drift) 6b. Right Leg: Motor (5-second hold - always test supine) - 0(No drift) 7. Limb Ataxia (finger/nose \T\ heel/tariq - test with eyes open) - 0(Absent) 8. Sensory Loss (pinprick arms/legs/face) - 0(Normal) 9. Best Language: Aphasia (description/naming/reading) - 0(No aphasia) 10. Dysarthria (speech clarity - read or repeat words) - 0(Normal) 11. Extinction and Inattention (visual/tactile/auditory/spatial/personal) - 0(No abnormality) Initials: ab2 Signatures: Ela Greenwood rg4 Hedy Moore 5 Genaro Herrera RN RN ll1 Alejo Parra, DO CARMICHAEL ms3 Rogelio Reyes ab2 Sahara Moore Corrections: (The following items were deleted from the chart) 11:27 11:26 BP 104 / 52 Supine; Pulse 80bpm; Resp 17bpm; Pulse Ox 98% RA; ab2 ab2
--- NOTE | 2021-07-26 11:21 | EDPHYS ---
Physician Documentation [facility] Name: Timo Silva Age: 81 yrs Sex: Male : 1940 Arrival Date: 07/26/2021 Time: 10:16 Bed Treatment Private MD: ED Physician Alejo Parra HPI: 07/26 10:45 This 81 yrs old Male presents to ER via Wheelchair with complaints of Blood Pressure ms3 Problem, Weakness, Dizziness. 10:45 The patient presents to the emergency department with weakness of the entire body, ms3 generalized weakness, that is moderate. Onset: The symptoms/episode began/occurred acutely, 3 day(s) ago. Context: occurred while the patient was standing. Associated signs and symptoms: The patient has no apparent associated signs or symptoms. Severity of symptoms: At their worst the symptoms were severe in the emergency department the symptoms have resolved Pain is currently a 0 / 10. 81-year-old male with past medical history of coronary artery disease, myocardial infarction presents for generalized weakness that occurs when standing. Patient states this has been ongoing for 3 days. Patient denies pain at this time. Patient states his symptoms are worse when going to stand. Patient denies chest pain, shortness of breath. Patient denies alleviating factors. Patient has noted his blood pressure to be variable recently.. Historical: - Allergies: 10:29 Codeine; ll1 10:29 Sulfa (Sulfonamide Antibiotics); ll1 - PMHx: 10:29 Coronary atherosclerosis; Myocardial infarction; ll1 - Immunization history:: Client reports having NOT received the Covid vaccine. - Social history:: Smoking status: Patient denies any tobacco usage or history of. ROS: 10:45 Constitutional: Negative for fever, and chills. ENT: Negative for injury, pain, and ms3 discharge, Cardiovascular: Negative for chest pain, and palpitations. Respiratory: Negative for shortness of breath, cough, wheezing, and pleuritic chest pain, Abdomen/GI: Negative for abdominal pain, nausea, vomiting, diarrhea, and constipation, MS/Extremity: Negative for injury and deformity, Skin: Negative for injury, rash, and discoloration, Psych: Negative for depression, anxiety, suicide ideation, homicidal ideation, and hallucinations, Hematologic/Lymphatic: Negative for swollen nodes, abnormal bleeding, and unusual bruising. 10:45 Neuro: Positive for Generalized weakness. Exam: 10:45 Constitutional: This is a well developed, well nourished patient who is awake, alert, ms3 and in no acute distress. Head/Face: Normocephalic, atraumatic. Eyes: Pupils equal round and reactive to light, extra-ocular motions intact. Lids and lashes normal. Conjunctiva and sclera are non-icteric and not injected. Periorbital areas with no swelling, redness, or edema. Neck: Trachea midline, no cervical lymphadenopathy. Supple, full range of motion without nuchal rigidity, or vertebral point tenderness. No Meningismus. Chest/axilla: Normal chest wall appearance and motion. Nontender with no deformity. Respiratory: Lungs have equal breath sounds bilaterally, clear to auscultation and percussion. No rales, rhonchi or wheezes noted. No increased work of breathing, no retractions or nasal flaring. Abdomen/GI: Soft, non-tender, with normal bowel sounds. No distension or tympany. No guarding or rebound. No evidence of tenderness throughout. Skin: Warm, dry with normal turgor. Normal color with no rashes, no lesions, and no evidence of cellulitis. MS/ Extremity: Pulses equal, no cyanosis. Neurovascular intact. Full, normal range of motion. Neuro: Awake and alert, GCS 15, oriented to person, place, time, and situation. Cranial nerves II-XII grossly intact. Motor strength 5/5 in all extremities. Sensory grossly intact. Cerebellar exam normal. Normal gait. Psych: Awake, alert, with orientation to person, place and time. Behavior, mood, and affect are within normal limits. 11:01 Cardiovascular: Rate: normal, Rhythm: irregularly irregular, Pulses: no pulse deficits ms3 are appreciated, Heart sounds: normal. 11:02 ECG was reviewed by the Attending Physician. ms3 Vital Signs: 10:30 BP 112 / 58; Pulse 54; Resp 17; Temp 97.7; Pulse Ox 100% ; Pain 0/10; ll1 11:20 BP 104 / 52 Supine; Pulse 80; Resp 17; Pulse Ox 98% on R/A; ab2 11:22 BP 111 / 56; Pulse 68; Resp 17; Pulse Ox 99% on R/A; ab2 11:24 BP 92 / 48; Pulse 95; Resp 17; Pulse Ox 100% on R/A; ab2 12:54 BP 110 / 54 Supine; Pulse 80; Resp 16; Pulse Ox 100% on R/A; mh5 12:56 BP 102 / 65 Sitting; Pulse 38; Resp 16; Pulse Ox 100% on R/A; mh5 12:59 BP 88 / 53 Standing; Pulse 88; Resp 16; Pulse Ox 100% on R/A; mh5 14:00 BP 104 / 77; Pulse 90; Resp 17; Pulse Ox 100% on R/A; ab2 15:40 BP 108 / 81; Pulse 95; Resp 18; Pulse Ox 99% on R/A; ab2 16:33 BP 101 / 48; Pulse 111; Resp 17; Pulse Ox 97% on R/A; ab2 17:04 BP 98 / 67; Pulse 120; Resp 17; Pulse Ox 100% on R/A; ab2 18:08 BP 104 / 79; Pulse 108; Resp 17; Pulse Ox 99% on R/A; ab2 20:21 BP 101 / 53; Pulse 91; Resp 17; Pulse Ox 100% on R/A; ab2 NIH Stroke Scale Scores: 10:48 NIHSS Score: 0 ab2 MDM: 10:43 Patient medically screened. ms3 21:16 Data reviewed: vital signs, nurses notes. Counseling: I had a detailed discussion with ms3 the patient and/or guardian regarding: the historical points, exam findings, and any diagnostic results supporting the discharge/admit diagnosis, lab results, the need for further work-up and treatment in the hospital. 07/26 10:38 Order name: Basic Metabolic Panel; Complete Time: 11:10 sc3 07/26 10:38 Order name: CBC with Diff; Complete Time: 11:10 ms3 07/26 14:08 Order name: SARS-COV-2 RT PCR EDMS 07/26 15:49 Order name: T4 Free EDMS 07/26 15:49 Order name: Thyroid Stimulating Hormone EDMS 07/26 15:49 Order name: Urinalysis EDMS 07/26 15:49 Order name: Basic Metabolic Panel EDMS 07/26 15:49 Order name: Basic Metabolic Panel EDMS 07/26 15:49 Order name: CBC with Automated Diff EDMS 07/26 15:49 Order name: CBC with Automated Diff EDMS 07/26 15:49 Order name: CKMB Creatine Kinase MB EDMS 07/26 15:49 Order name: CKMB Creatine Kinase MB EDMS 07/26 15:49 Order name: CKMB Creatine Kinase MB EDMS 07/26 10:38 Order name: EKG; Complete Time: 10:38 ms3 07/26 10:38 Order name: Cardiac monitoring; Complete Time: 10:48 ms3 07/26 10:38 Order name: EKG - Nurse/Tech; Complete Time: 10:48 ms3 07/26 13:24 Order name: Diet Heart Healthy; Complete Time: 13:24 mh5 07/26 15:49 Order name: CKMB Creatine Kinase MB EDMS 07/26 15:49 Order name: Creatine Phosphokinase EDMS 07/26 15:49 Order name: Creatine Phosphokinase EDMS 07/26 15:49 Order name: Creatine Phosphokinase EDMS 07/26 15:49 Order name: Creatine Phosphokinase EDMS 07/26 15:49 Order name: Lipid Profile EDMS 07/26 15:49 Order name: Lipid Profile EDMS 07/26 15:49 Order name: Magnesium EDMS 07/26 15:49 Order name: Magnesium EDMS 07/26 15:49 Order name: Phosphorus EDMS 07/26 15:49 Order name: Phosphorus EDMS 07/26 10:38 Order name: IV Saline Lock; Complete Time: 10:48 ms3 07/26 10:38 Order name: Labs collected and sent; Complete Time: 10:48 ms3 07/26 10:38 Order name: O2 Per Protocol; Complete Time: 10:48 ms3 07/26 10:38 Order name: O2 Sat Monitoring; Complete Time: 10:48 ms3 07/26 11:09 Order name: Orthostatics; Complete Time: 11:28 ms3 EC:02 Rate is 98 beats/min. Rhythm is irregularly irregular. QRS [place] is Normal. Clinical ms3 impression: Atrial Fibrillation. Interpreted by me. Reviewed by me. Administered Medications: 11:30 Drug: NS 0.9% 1000 ml Route: IV; Rate: 1 bolus; Site: left antecubital; ab2 15:42 Follow up: Response: No adverse reaction; IV Status: Completed infusion ab2 Disposition Summary: 07/26/21 13:18 Hospitalization Ordered Hospitalization Status: Observation ms3 Provider: Atif Casper ms3 Location: Telemetry/MedSurg (observation)(07/26/21 13:18) ms3 Condition: Stable(07/26/21 13:18) ms3 Problem: new(07/26/21 13:18) ms3 Symptoms: are unchanged(07/26/21 13:18) ms3 Bed/Room Type: Standard ms3 Room Assignment: 222(07/26/21 20:46) ja Diagnosis - Orthostatic hypotension ms3 - Unspecified atrial fibrillation ms3 Forms: - Medication Reconciliation Form ms3 - SBAR form ms3 NIH Stroke Scale - NIH Stroke Score Date: 07/26/2021 Time: 10:48 Total Score = 0 1a. Level of Consciousness (LOC) - 0(Alert) 1b. Level of Consciousness (LOC) (Month \T\ Age) - 0(Both) 1c. LOC Commands (Open \T\ Closes Eyes/Internet Project Manager) - 0(Both) 2. Best Gaze (Lateral Gaze Paresis) - 0(Normal) 3. Visual Field Loss - 0(No visual loss) 4. Facial Palsy - 0(Normal) 5a. Left Arm: Motor (10-second hold) - 0(No drift) 5b. Right Arm: Motor (10-second hold) - 0(No drift) 6a. Left Leg: Motor (5-second hold - always test supine) - 0(No drift) 6b. Right Leg: Motor (5-second hold - always test supine) - 0(No drift) 7. Limb Ataxia (finger/nose \T\ heel/tariq - test with eyes open) - 0(Absent) 8. Sensory Loss (pinprick arms/legs/face) - 0(Normal) 9. Best Language: Aphasia (description/naming/reading) - 0(No aphasia) 10. Dysarthria (speech clarity - read or repeat words) - 0(Normal) 11. Extinction and Inattention (visual/tactile/auditory/spatial/personal) - 0(No abnormality) Initials: ab2 Signatures: Dispatcher [employer] EDMS Nish Mills, RN RN ja1 Genaro Herrera RN RN ll1 Alejo Parra DO DO ms3 Rogelio Reyes ab2 Corrections: (The following items were deleted from the chart) 11:02 10:45 Constitutional: This is a well developed, well nourished patient who is ms3 awake, alert, and in no acute distress. Head/Face: Normocephalic, atraumatic. Eyes: Pupils equal round and reactive to light, extra-ocular motions intact. Lids and lashes normal. Conjunctiva and sclera are non-icteric and not injected. Periorbital areas with no swelling, redness, or edema. Neck: Trachea midline, no cervical lymphadenopathy. Supple, full range of motion without nuchal rigidity, or vertebral point tenderness. No Meningismus. Chest/axilla: Normal chest wall appearance and motion. Nontender with no deformity. Cardiovascular: Regular rate and rhythm with a normal S1 and S2. No gallops, murmurs, or rubs. Normal PMI, no JVD. No pulse deficits. Respiratory: Lungs have equal breath sounds bilaterally, clear to auscultation and percussion. No rales, rhonchi or wheezes noted. No increased work of breathing, no retractions or nasal flaring. Abdomen/GI: Soft, non-tender, with normal bowel sounds. No distension or tympany. No guarding or rebound. No evidence of tenderness throughout. Skin: Warm, dry with normal turgor. Normal color with no rashes, no lesions, and no evidence of cellulitis. MS/ Extremity: Pulses equal, no cyanosis. Neurovascular intact. Full, normal range of motion. Neuro: Awake and alert, GCS 15, oriented to person, place, time, and situation. Cranial nerves II-XII grossly intact. Motor strength 5/5 in all extremities. Sensory grossly intact. Cerebellar exam normal. Normal gait. Psych: Awake, alert, with orientation to person, place and time. Behavior, mood, and affect are within normal limits. ms3 11:22 11:21 Home ms3 ms3 11:22 11:21 new ms3 ms3 11:22 11:21 are unchanged ms3 ms3 11:22 11:21 Stable ms3 ms3 11:22 11:21 Lower abdominal pain, unspecified ms3 ms3 14:08 13:20 COVID 19 CPL+[id number].LAB.BRZ ordered. EDMS EDMS 20:46 13:18 ms3 ja1
[2021-07-26] MEDS ORDERED: NA CHLORIDE 0.9% 1,000 ML ONE (11:33)
[2021-07-26] MEDS ORDERED: ONDANSETRON 4 MG/2 ML VIAL IV PRN (15:44)
[2021-07-26] MEDS ORDERED: ACETAMINOPHEN 325 MG TABLET PO PRN (15:59)
--- NOTE | 2021-07-26 16:36 | P.HP ---
Certification for Inpatient Patient admitted to: Observation With expected LOS: <2 Midnights Patient will require the following post-hospital care: None Practitioner: I am a practitioner with admitting privileges, knowledge of patient current condition, hospital course, and medical plan of care. Services: Services provided to patient in accordance with Admission requirements found in Title 42 Section 412.3 of the Code of Federal Regulations Patient History Date of Service: 07/26/21 Reason for admission: A. fib RVR History of Present Illness: 81-year-old male patient with medical history significant for for atrial fibrillation which is permanent who was evaluated in ER for episode of dizziness and weakness especially arising from lying down position. He denied chest pain, fever, chills, rigor, nausea, vomiting episode he denied diarrhea. His telemetry was reviewed revealed A. fib RVR and there was concern for volume depletion so he had a bolus of normal saline given. He was asked to be admitted as observation for A. fib RVR control. Review of Systems General: Weakness, Unremarkable Eyes: Unremarkable ENT: Unremarkable Respiratory: Unremarkable Cardiovascular: Palpitations Gastrointestinal: Unremarkable Genitourinary: Unremarkable Musculoskeletal: Unremarkable Integumentary: Unremarkable Neurological: Unremarkable Physical Examination - Physical Exam General: Alert, Oriented x3 HEENT: Atraumatic, Normocephalic Neck: Supple Respiratory: Normal air movement Cardiovascular: Normal S1 S2, Irregular heart rate/rhythm Gastrointestinal: Soft and benign Musculoskeletal: No swelling Neurological: Normal speech, Normal strength at 5/5 x4 extr, Cranial nerves 3-12 intact - Studies Laboratory Data (last 24 hrs) 07/26/21 10:45: WBC 7.2, Hgb 9.8 L, Hct 29.6 L, Plt Count 247 07/26/21 10:45: Sodium 138, Potassium 4.0, BUN 23 H, Creatinine 0.89, Glucose 107 H Assessment and Plan - Plan A. fib with RVR: Patient has significant rapid ventricular rate with permanent A. fib. We will have him continue telemetry. Continue rate control medication with diltiazem and metoprolol. We will have cardiology evaluate as needed. We will follow TSH and free T4. Volume depletion: We will continue normal saline for repletion and monitor vitals Prophylaxis: Lovenox for DVT prophylaxis CODE STATUS: Full code Disposition: Will be discharged in next 24hrs. - Advance Directives Does patient have a Living Will: Yes Does patient have a Durable POA for Healthcare: Yes
[2021-07-26 20:28] LABS: Thyroid Stimulating Hormone 2.05 uIU/mL (0.360-3.740)
[2021-07-26 21:44] VITALS: BMI 24.4
[2021-07-26] MEDS: NA CHLORIDE 0.9% 1,000 ML IV SCH (23:34)
[2021-07-27] MEDS ORDERED: GABAPENTIN 300 MG CAP PO PRN (00:03)
[2021-07-27 00:14] VITALS: O2SAT 98
[2021-07-27 00:58] LABS: CKMB Creatine Kinase MB 2.3 ng/mL (1.0-3.6)
[2021-07-27] MEDS: NA CHLORIDE 0.9% 1,000 ML IV SCH (02:00)
[2021-07-27 03:10] LABS: Urine Appearance CLEAR (Clear); Urine Bilirubin NEGATIVE (Negative); Urine Blood NEGATIVE (Negative); Urine Color YELLOW (Yellow); Urine Glucose NEGATIVE (Negative); Urine Protein NEGATIVE (Negative)
[2021-07-27 03:13] LABS: Urine Microscopic Reflex NO UMIC
[2021-07-27 06:05] LABS: Absolute Lymphocytes (CBC) 1.7 K/uL (0.7-4.9); Hematocrit 26.5 % (39.6-49.0); Lymphocytes % 23.2 % (15.3-44.8); MPV 7.7 fL (7.6-11.3)
[2021-07-27 06:23] LABS: BUN Blood Urea Nitrogen 19 mg/dL (7-18); Bicarbonate 26 mmol/L (21-32); Glucose Level 106 mg/dL (74-106); HDL Cholesterol 40 mg/dL (40-60); LDL Cholesterol, Calculated 25 mg/dL (<130); Magnesium 2.2 mg/dL (1.8-2.4); Phosphorus 3.1 mg/dL (2.5-4.9); Potassium 4.1 mmol/L (3.5-5.1); Sodium Level 140 mmol/L (136-145)
[2021-07-27 08:14] VITALS: BP 98/55; TEMP 97.2
[2021-07-27] MEDS ORDERED: ATORVASTATIN 80 MG TAB PO SCH (09:00)
[2021-07-27] MEDS ORDERED: COENZYME Q10- 200 MG CAP PO SCH (09:00)
[2021-07-27] MEDS ORDERED: TAMSULOSIN 0.4 MG SR CAP PO SCH (09:00)
[2021-07-27] MEDS ORDERED: ENOXAPARIN 40 MG/0.4 ML SQ SCH (09:00)
[2021-07-27] MEDS ORDERED: VITAMIN E 400 IU CAP PO SCH (09:00)
[2021-07-27] MEDS ORDERED: APIXABAN 5 MG TABLET PO SCH (09:00)
[2021-07-27] MEDS ORDERED: FINASTERIDE 5 MG TAB PO SCH (09:00)
[2021-07-27] MEDS ORDERED: CLOPIDOGREL 75 MG TABLET PO SCH (09:00)
[2021-07-27 09:20] LABS: CKMB Creatine Kinase MB 2.3 ng/mL (1.0-3.6)
--- NOTE | 2021-07-27 09:54 | P.DS ---
Admission Date: 07/26/21 Discharge Date: 07/27/21 Disposition: ROUTINE DISCHARGE Discharge Condition: GOOD Reason for Admission: A. fib RVR Brief History of Present Illness: 81-year-old male patient with medical history significant for for atrial fibrillation which is permanent who was evaluated in ER for episode of dizziness and weakness especially arising from lying down position. He denied chest pain, fever, chills, rigor, nausea, vomiting episode he denied diarrhea. His telemetry was reviewed revealed A. fib RVR and there was concern for volume depletion so he had a bolus of normal saline given. He was asked to be admitted as observation for A. fib RVR control. Hospital Course: Patient was put in the acute medicine service and started on IV fluid for suspicion of volume depletion. His rapid ventricular response episode resolved and his vital signs stabilized. He had initial dizziness on standing but after orthostatic vitals were obtained patient had no significant changes for orthosta sis. Will be discharged today to continue with his routine diet. He will follow up with his primary care doctor and his motor vehicle assembler as scheduled. Vital Signs/Physical Exam: Temp Pulse Resp BP Pulse Ox 97.2 F 94 H 16 98/55 L 97 07/27/21 08:00 07/27/21 08:00 07/27/21 08:00 07/27/21 08:00 07/27/21 08:00 General: Alert, In no apparent distress, Oriented x3 HEENT: Atraumatic, Normocephalic Neck: Supple Respiratory: Normal air movement Cardiovascular: Regular rate/rhythm, Normal S1 S2 Gastrointestinal: Soft and benign Neurological: Normal strength at 5/5 x4 extr, Cranial nerves 3-12 intact Laboratory Data at Discharge: WBC 7.5 K/uL (4.3-10.9) 07/27/21 05:55 Hgb 8.9 g/dL (13.6-17.9) L 07/27/21 05:55 Hct 26.5 % (39.6-49.0) L 07/27/21 05:55 Plt Count 231 K/uL (152-406) 07/27/21 05:55 Sodium 140 mmol/L (136-145) 07/27/21 05:55 Potassium 4.1 mmol/L (3.5-5.1) 07/27/21 05:55 BUN 19 mg/dL (7-18) H 07/27/21 05:55 Creatinine 0.81 mg/dL (0.55-1.3) 07/27/21 05:55 Glucose 106 mg/dL (74-106) 07/27/21 05:55 Phosphorus 3.1 mg/dL (2.5-4.9) 07/27/21 05:55 Magnesium 2.2 mg/dL (1.8-2.4) 07/27/21 05:55 Triglycerides 40 mg/dL (<150) 07/27/21 05:55 Cholesterol 73 mg/dL (<200) 07/27/21 05:55 HDL Cholesterol 40 mg/dL (40-60) 07/27/21 05:55 Cholesterol/HDL Ratio 1.83 07/27/21 05:55 Home Medications: Apixaban [Eliquis] 5 mg PO BID 07/26/21 Atorvastatin Calcium [Lipitor] 80 mg PO DAILY 07/26/21 Clopidogrel Bisulfate [Plavix] 75 mg PO DAILY 07/26/21 Finasteride 5 mg PO DAILY 07/26/21 Gabapentin 300 mg PO TID 07/26/21 Metoprolol Succinate [Toprol Xl] 25 mg PO BEDTIME 07/26/21 Tamsulosin [Flomax*] 0.4 mg PO DAILY 07/26/21 Tramadol HCl [Ultram] 50 mg PO BEDTIME 07/26/21 Ubidecarenone [Co Q-10] 200 mg PO DAILY 07/26/21 Vit E 180 Iu 180 iu PO DAILY 07/26/21 methylPREDNISolone [Methylprednisolone] 4 mg PO BEDTIME 07/26/21 Diet: AHA Activity: Ad frank Followup: NONE,NONE [Primary Care Provider] -
[2021-07-27] MEDS ORDERED: NA CHLORIDE 0.9% 500 ML IV ONE (10:00)
[2021-07-27] MEDS ORDERED: METOPROLOL XL 25 MG TAB PO SCH (21:00)
[2021-07-27] MEDS ORDERED: methylPREDNISolone 4 MG TAB PO SCH (21:00)
[2021-07-27] MEDS ORDERED: TRAMADOL HCL 50 MG TAB PO SCH (21:00)
== END 2021-07-27 10:55 | disposition home or self-care (01) ==
LOC: ER 10:13 → ERHOLD 15:45 → 2ND 21:14
PROVIDERS: ADMIT Internal Medicine Nephrology; ATTEND Internal Medicine Nephrology
DX: I48.21 Permanent atrial fibrillation (principal); I95.1 Orthostatic hypotension; I25.10 Atherosclerotic heart disease of native coronary artery without angina pectoris; I25.2 Old myocardial infarction; Z88.2 Allergy status to sulfonamides; Z88.6 Allergy status to analgesic agent; Z20.822 Contact with and (suspected) exposure to COVID-19
CPT/HCPCS: 36415; 80048; 80061; 81003; 82550; 82553; 83735; 84100; 84439; 84443; 85025; 93005; 96360; 96361; 99285; G0378; J7030; J7040; U0003